=== PATIENT | female | born 1980 | race Caucasian/White ===

== ENCOUNTER 2019-10-19 16:04 | Emergency (ER) | payer MEDICAID, SELFPAY ==
[2019-10-19 16:13] VITALS: BP 122/67; PULSE 69; RESP 16; O2SAT 98; BMI 35.2
--- NOTE | 2019-10-19 16:19 | CT_ITS ---
PROCEDURE: CT ABDOMEN PELVIS WO CON CLINICAL INDICATION: abd pain and swelling Right upper quadrant pain COMPARISON: No exams were available for comparison TECHNIQUE: Axial images obtained with sagittal and coronal reformats. All CT scans at the facility use one or more dose reduction, viz: automated exposure control, ma/kV adjustment per patient size (including targeted exams where dose is matched to indication, i.e. head), or iterative reconstruction technique. FINDINGS: LOWER THORAX: Mild atelectatic or fibrotic change in the lung base posteriorly ABDOMEN & PELVIS: Post cholecystectomy. Liver, spleen adrenal glands, and pancreas have an unremarkable unenhanced appearance. There is a nonobstructing 3 mm stone in the upper pole of the left kidney. No hydronephrosis. No ureteral calculi. There is a mild amount of retained colonic feces. No evidence of appendicitis or diverticulitis. No intestinal obstruction or free air. Post hysterectomy change. No pelvic mass or abnormal fluid collection. No acute bony anomalies IMPRESSION: 1. No acute abdominal or pelvic findings. 2. Mild amount of retained colonic feces 3. Nonobstructing left nephrolithiasis Dictated by: Jose Villatoro MD 10/20/2019 08:16 Electronically signed by Jose Villatoro MD in [place] 10/20/2019 08:16
[2019-10-19 16:32] LABS: Basophils # 0.1 K/mm3 (0-0.2); Basophils % 0.5 % (0.1-2.0); Eosinophils # 0.3 K/mm3 (0.0-0.4); Eosinophils % 2.2 % (0.1-12.0); Hematocrit 39.2 % (37.0-47.0); Hemoglobin 13.6 g/dL (12.2-16.2); Lymphocytes # 3.8 K/mm3 (0.7-4.5); Lymphocytes % 28.6 % (10-50); Mean Corpuscular HGB Conc 34.7 g/dL (31.8-35.4); Mean Corpuscular Volume 92.3 fl (81-99); Monocytes # 0.4 K/mm3 (0.1-1.0); Monocytes % 2.9 % (1.7-9.3); Neutrophils # 8.7 K/mm3 (1.8-7.8); Neutrophils % 65.8 % (37.0-80.0); Platelet Count 239 K/mm3 (142-424); Red Blood Count 4.25 M/mm3 (4.20-5.40); Red Cell Distribution Width 13.8 % (11.5-17.5); White Blood Count 13.1 K/mm3 (4.8-10.8)
--- NOTE | 2019-10-19 16:40 | PC.NURSE ---
Pt with rad.
[2019-10-19 16:42] LABS: Chloride 109 mmol/L (98-107); Potassium 3.9 mmoL/L (3.5-5.1); Sodium 137 mmol/L (136-145)
[2019-10-19 16:44] LABS: Amylase 59 U/L (30-110); Blood Urea Nitrogen 14 mg/dl (7-17); Creatinine Clearance Estimated 140 mL/min (50-200); Estimated Glomerular Filt Rate 94 ml/min (>60); GFR (African American) 113 ML/MIN (>60)
[2019-10-19 16:45] LABS: Alanine Aminotransferase 26 U/L (12-78); Albumin Level 3.5 g/dl (3.5-5.0); Albumin/Globulin Ratio 1.2 (1.1-1.8); Alkaline Phosphatase 92 U/L (38-126); Anion Gap 9.9 mEq/L (5-15); Aspartate Amino Transferase 26 U/L (14-36); Bilirubin,Total 0.2 mg/dl (0.2-1.3); Carbon Dioxide 22 mmol/L (22.0-30.0); Glucose 94 mg/dl (74-100); Lipase 68 U/L (23-300); Total Protein,Serum 6.5 g/dl (6.3-8.2)
[2019-10-19 18:01] LABS: Microscopic, Urine URINE MICROSCOPIC (MICROSCOPIC)
[2019-10-19 18:02] LABS: Appearance,Urine CLEAR (Clear); Bilirubin,Urine Negative (Negative); Blood, Urine Negative (Negative); Color,Urine YELLOW (Yellow); Glucose,Urine (UA) Negative (Negative); Ketones,Urine Negative (Negative); Leukocyte Esterase,Urine Negative (Negative); Nitrate,Urine Negative (Negative); PH,Urine 6.5 (5.0-8.5); Protein,Urine Negative (Negative); Specific Gravity, Urine 1.025 (1.005-1.030); Urobilinogen,Urine 0.2 EU/dl (0.2)
--- NOTE | 2019-10-19 18:17 | [facility].EDABDPAI ---
ED Disposition Clinical Impression: Constipation Disposition: Home, Self-Care Condition on Discharge: Good Instructions: DI for Acute Abdomen Prescriptions: polyethylene glycoL 3350 [Miralax 17gm Packet] 17 gm PO DAILY #30 packet Prescription Printed Referrals: Rosendo Reynolds MD [Primary Care Provider] - - Critical Care Critical Care Time: No Attestation: On 10/19/19, the high probability of a clinically significant, sudden or life threatening deterioration of the following system(s) required my full and direct attention, intervention and personal management. The time I documented below is in addition to time spent performing reported procedures but includes the following listed in this critical care notation. Medical Decision Making - Medical Records Medical records reviewed: Yes: I reviewed the patient's medical records. - Marcial Inquiry Pt receiving controlled substance: No Vital Signs: 10/19/19 16:13 Pulse Rate [Right] 69 Respiratory Rate 16 Blood Pressure [Right Arm] 122/67 Blood Pressure Mean [Right Arm] 85 Blood Pressure Source [Right Arm] Automatic Cuff Blood Pressure Position [Right Arm] Sitting 02 Sat by Pulse Oximetry 98 Oxygen Delivery Method Room Air - Lab Data Lab results reviewed: Yes: I reviewed the patient's lab results. Lab Results 10/19/19 16:24: WBC 13.1 H, RBC 4.25, Hgb 13.6, Hct 39.2, MCV 92.3, MCH 32.0 H, MCHC 34.7, RDW 13.8, Plt Count 239, MPV 8.0, Neut % (Auto) 65.8, Lymph % (Auto) 28.6, [place] % (Auto) 2.9, Eos % (Auto) 2.2, Baso % (Auto) 0.5, Neut # (Auto) 8.7 H, Lymph # (Auto) 3.8, [place] # (Auto) 0.4, Eos # (Auto) 0.3, Baso # (Auto) 0.1 10/19/19 16:24: Sodium 137, Potassium 3.9, Chloride 109 H, Carbon Dioxide 22, Anion Gap 9.9, BUN 14, Creatinine 0.70, Estimated Creat Clear 140, Estimated GFR 94, Est GFR ( Amer) 113, Glucose 94, Calcium 9.0, Total Bilirubin 0.2, AST 26, ALT 26, Alkaline Phosphatase 92, Total Protein 6.5, Albumin 3.5, Globulin 3.0, Albumin/Globulin Ratio 1.2, Amylase 59, Lipase 68 10/19/19 17:50: Urine Color Yellow, Urine Appearance Clear, Urine pH 6.5, Ur Specific [place] 1.025, Urine Protein Negative, Urine Glucose (UA) Negative, Urine Ketones Negative, Urine Blood Negative, Urine Nitrate Negative, Urine Bilirubin Negative, Urine Urobilinogen 0.2, Ur Leukocyte Esterase Negative Result diagrams: 10/19/19 16:24 10/19/19 16:24 Orders (Tests/Meds): ORDERS Category Date Time Status CT abdomen pelvis wo con Stat Cat Scan 10/19/19 16:19 Taken UA [Urinalysis and Microscopic] Stat Lab 10/19/19 17:50 Results - CT Data CT Scan: Abdomen, Pelvis Time Received: 18:[address] Reviewed: Yes: I have viewed the radiologist's interpretation Preliminary Findings: Normal/NAD (Is a normal CT with evidence of constipation), Abnormal Abdominal Pain HPI - General Chief Complaint: Abdominal Pain Stated Complaint: abd pain Time Seen by Provider: 10/19/19 18:00 Mode of Arrival: Ambulatory Source of Information: Patient Limitations: No Limitations Description of Symptoms (Recalled from ER Triage Doc. by RN): Pt comes in c/o abd pain and swelling that started yesterday - History of Present Illness HPI narrative: 39-year-old female presents the ED with generalized abdominal pain more specific in the right upper quadrant. She states this pain is been going on for about 2 to 3 days. She also complains that she really has not had a good bowel movement in about 10 days. Patient denies any nausea or vomiting. Patient denies any recent fever shakes or chills. Patient rates her pain 7 out of 10 classifies it sharp and colicky in nature that comes and goes intermittently. She denies any exacerbating or alleviating factors. - Related Data Home Medications Medication Instructions Recorded Confirmed cetirizine 5 mg tablet 5 mg PO BID PRN 05/19/17 10/19/19 dicyclomine 20 mg tablet 20 mg PO TID tab 05/19/17 10/19/19 estradiol 2 mg tablet 2 mg PO ONCE
[2019-10-19 18:29] LABS: WBC,Urine Occasional #/hpf (0-3)
[2019-10-19 18:39] VITALS: BP 122/67; PULSE 69; RESP 16; TEMP 36.7; O2SAT 98
== END 2019-10-19 18:42 | disposition home or self-care (01) ==
PROVIDERS: Emergency Provider Family Medicine; PCP Family Medicine
DX: K59.00 Constipation, unspecified (principal); R10.84 Generalized abdominal pain; Z88.0 Allergy status to penicillin; Z88.2 Allergy status to sulfonamides
CPT/HCPCS: 74176; 80053; 81001; 82150; 83690; 85025; 99283